=== PATIENT | female | born 1975 | race Asian ===

== ENCOUNTER 2016-10-11 16:48 | Emergency (ER) | payer MEDICAID ==
[~2016-10-11] VITALS: Ht 162.6 cm; Wt 83.0 kg
[2016-10-11 16:48] VITALS: BP 127/76; PULSE 104; RESP 20; TEMP 97.7; O2SAT 98
--- NOTE | 2016-10-11 16:48 | NUR ---
BROUGHT BACK TO BED #7 AND TRIAGED. REPORT GIVEN TO LANI
--- NOTE | 2016-10-11 17:28 | NUR ---
Pt brought in by in stable condition. Per pt, she had a fever 106.2 on Friday and has been taking Ibuprofen. Pt stated that her head "feels fuzzy", headache and congestion. Pt stated that she does suffer from migraines but this headache feels different. Pt stated that her vision is fuzzy and things look "blurry" tp her. -sob -chest pain. No acute distress noted at this time, will continue to monitor
[2016-10-11] MEDS ORDERED: KETOROLAC TROMETHAMINE 60 MG/2 ML VIAL IM ONE (17:30)
[2016-10-11] MEDS ORDERED: DEXAMETHASONE SOD PHOSPHATE 10 MG/ML VIAL IM ONE (17:30)
--- NOTE | 2016-10-11 17:30 | NUR ---
ER at bedside examining patient.
[2016-10-11 17:50] LABS: BASOPHILS # (AUTO) 0.1 K/uL (0.0-0.2); BASOPHILS % (AUTO) 1.5 % (0.0-2.0); EOSINOPHILS # (AUTO) 0.1 K/uL (0.0-0.4); EOSINOPHILS % (AUTO) 1.5 % (0.0-4.0); HEMOGLOBIN 12.5 g/dL (12.0-16.0); LYMPHOCYTES # (AUTO) 2.1 K/uL (1.0-5.5); LYMPHOCYTES % (AUTO) 50.9 % (20.5-51.5); MEAN CORPUSCULAR HEMOGLOBIN 30 pg (27-31); MEAN CORPUSCULAR HGB CONC 33 % (32-36); MEAN CORPUSCULAR VOLUME 92 fL (79.0-98.0); MONOCYTES # (AUTO) 0.3 K/uL (0.0-1.0); MONOCYTES % (AUTO) 8.3 % (1.7-9.3); NEUTROPHILS # (AUTO) 1.6 K/uL (1.8-7.7); NEUTROPHILS % (AUTO) 37.8 % (40.0-70.0); PLATELET COUNT (AUTO) 234 K/uL (130-430); RED BLOOD CELL COUNT(AUTO) 4.15 MIL/uL (4.2-6.2); RED CELL DISTRIBUTION WIDTH 12.4 % (9.0-15.0); WHITE BLOOD COUNT (AUTO) 4.2 K/uL (4.8-10.8)
[2016-10-11 18:06] LABS: BILIRUBIN,URINE NEGATIVE (NEGATIVE); BLOOD, URINE NEGATIVE (NEGATIVE); CLARITY/URINE CLEAR (CLEAR); COLOR,URINE YELLOW (YELLOW); GLUCOSE,URINE NEGATIVE (NEGATIVE); KETONES,URINE TRACE (NEGATIVE); LEUKOCYTE ESTERASE ,URINE NEGATIVE (NEGATIVE); NITRITE, URINE NEGATIVE (NEGATIVE); PROTEIN URINE TRACE (NEGATIVE); UROBILINOGEN,URINE 0.2 (0.2-1.0)
[2016-10-11 18:16] LABS: BACTERIA,URINE FEW /HPF (None Seen); MUCUS,URINE 1+ /LPF (None Seen); RBC,URINE NONE SEEN /HPF (0-3); WBC,URINE 0-3 /HPF (0-3)
[2016-10-11 18:19] LABS: BARBITURATE, URINE NEGATIVE (NEG <=200); BENZODIAZEPINE, URINE NEGATIVE (NEG <=150); CANNABINOID, URINE NEGATIVE (NEG <=50); COCAINE, URINE NEGATIVE (NEG <=150); METHAMPHETAMINES SCREEN,URINE NEGATIVE (NEG <=500); OPIATE, URINE NEGATIVE (NEG <=100); PHENCYCLIDINE SCREEN,URINE NEGATIVE (NEG <=25); UR TRICYCLIC ANTIDEPRESSANTS NEGATIVE (NEG <=300); URINE AMPHETAMINE NEGATIVE (NEG <=500); URINE METHADONE NEGATIVE (NEG <=200); URINE OXYCODONE SCREEN NEGATIVE (NEG <=100); URINE PROPOXYPHENE SCREEN NEGATIVE (NEG <=300)
[2016-10-11 21:36] VITALS: BP 127/76; PULSE 98; RESP 20; TEMP 97.7; O2SAT 98
--- NOTE | 2016-10-11 21:36 | NUR ---
Patient given written and verbal discharge instructions and verbalizes understanding. ER MD Dr. Cohen discussed with patient the results and treatment provided. Patient in stable condition. ID arm band removed. Rx of amoxicillin and ibuprofen 600 given. Patient educated on pain management and to follow up with PMD. Pain Scale 2/10. Opportunity for questions provided and answered.
== END 2016-10-11 21:36 | disposition home or self-care (01) ==
LOC: SED 16:48
DX: B34.9 Viral infection, unspecified (principal); R03.0 Elevated blood-pressure reading, without diagnosis of hypertension; Z88.2 Allergy status to sulfonamides
CPT/HCPCS: 36415; 80307; 81000-TC; 85025; 86710; 99284